=== PATIENT | female | born 1950 | race Caucasian/White ===

== ENCOUNTER 2024-12-10 14:45 | Outpatient (CLI) | payer MEDICARE, OTHER | END 2024-12-10 14:46 | disposition home or self-care (01) | LOC: CSHMAMMO 14:45 | PROVIDERS: ATTEND Nurse Practitioner Family | DX: Z12.31 Encounter for screening mammogram for malignant neoplasm of breast (principal); E28.39 Other primary ovarian failure; M85.851 Other specified disorders of bone density and structure, right thigh; M85.852 Other specified disorders of bone density and structure, left thigh; Z91.89 Other specified personal risk factors, not elsewhere classified | CPT/HCPCS: 77063; 77067; 77080 ==